=== PATIENT | male | born 1960 | race Caucasian/White ===

== ENCOUNTER 2016-12-22 15:27 | Emergency (ER) | payer MEDICARE | END 2016-12-22 17:59 | disposition home or self-care (01) | LOC: ER1 15:27 | DX: S39.012A Strain of muscle, fascia and tendon of lower back, initial encounter (principal); E11.9 Type 2 diabetes mellitus without complications; I10 Essential (primary) hypertension; F17.210 Nicotine dependence, cigarettes, uncomplicated; Z95.1 Presence of aortocoronary bypass graft; W01.0XXA Fall on same level from slipping, tripping and stumbling without subsequent striking against object, initial encounter; Y92.009 Unspecified place in unspecified non-institutional (private) residence as the place of occurrence of the external cause | CPT/HCPCS: 72100; 72170; 73564; 96372; 99283; J1885; J3360 ==